=== PATIENT | female | born 1990 | race African-American/Black ===

== ENCOUNTER 2016-11-13 10:40 | Emergency (ER) | payer SELFPAY ==
[~2016-11-13] VITALS: Ht 165.1 cm; Wt 113.6 kg
[2016-11-13] MEDS ORDERED: ONDANSETRON (ODT) 4 MG TAB ODT STA (10:50)
[2016-11-13] MEDS ORDERED: HYDROmorphONE 1 MG/ML SYG IV STA ×3 (10:50→13:46)
[2016-11-13] MEDS ORDERED: SOD CHLORIDE 0.9% 1,000 ML IV STA (10:50)
[2016-11-13] MEDS ORDERED: KETOROLAC 30 MG INJ IV STA (10:50)
[2016-11-13] MEDS ORDERED: HYDROmorphONE 2 MG/ML SYG IM STA (10:50)
[2016-11-13 11:08] VITALS: Ht 165.1 cm; Wt 113.6 kg
[2016-11-13 11:17] LABS: BASOPHILS % 0.4 % (0.0-2.0); HEMATOCRIT 30.2 % (37.0-47.0); LYMPHOCYTES # 0.9 10^3/ul (0.8-2.9); MEAN CORPUSCULAR HEMOGLOBIN 25.8 pg (29.0-33.0); MEAN CORPUSCULAR HGB CONC 33.1 g/dl (32.0-37.0); MEAN CORPUSCULAR VOLUME 77.8 fl (82.0-101.0); MEAN PLATELET VOLUME 11.5 fl (7.4-10.4); MONOCYTE # 0.4 10^3/ul (0.3-0.9); NEUTROPHIL # 8.5 10^3/ul (1.6-7.5); NEUTROPHILS % 86.3 % (39.0-77.0); PLATELET COUNT 227 10^3/UL (140-415); RED BLOOD COUNT 3.88 10^6/ul (4.20-5.40); RED CELL DISTRIBUTION WIDTH 15.5 % (11.5-14.5); RETICULOCYTE COUNT % 1.6 % (0.5-1.5); WHITE BLOOD COUNT 9.9 10^3/ul (4.8-10.8)
[2016-11-13 11:54] VITALS: BP 136/80; PULSE 91; RESP 20; TEMP 98.2
[2016-11-13 11:56] LABS: ALBUMIN 4.3 g/dl (3.3-4.9); ALBUMIN/GLOBULIN RATIO 1.48; BILIRUBIN,INDIRECT 0.2 mg/dl (0-1.1); BILIRUBIN,TOTAL 0.2 mg/dl (0.2-1.3); CALCIUM 9.5 mg/dl (8.4-10.2); CREATININE 0.82 mg/dl (0.44-1.00); POTASSIUM 3.2 mmol/L (3.5-5.1); TOTAL PROTEIN 7.2 g/dl (6.1-8.1)
[2016-11-13 12:00] LABS: ADD UMIC NO; UR ASCORBIC ACID NEGATIVE (NEGATIVE); UR BILIRUBIN (Dip) NEGATIVE (NEGATIVE); UR BLOOD (Dip) NEGATIVE (NEGATIVE); UR CLARITY CLEAR (CLEAR); UR COLOR COLORLESS (YELLOW); UR GLUCOSE (Dip) NEGATIVE (NEGATIVE); UR KETONES (Dip) 1+ mg/dL (NEGATIVE); UR LEUKOCYTE ESTERASE (Dip) NEGATIVE Leu/ul (NEGATIVE); UR NITRITE (Dip) NEGATIVE (NEGATIVE); UR SPECIFIC GRAVITY (Dip) 1.011 (1.003-1.030); UR TOTAL PROTEIN (Dip) NEGATIVE (NEGATIVE); UR UROBILINOGEN (Dip) NEGATIVE (NEGATIVE)
--- NOTE | 2016-11-13 12:06 | RADRPT ---
PROCEDURE: XR Chest. CLINICAL INDICATION: Abdominal pain TECHNIQUE: Anterior chest x-ray. COMPARISON: None. FINDINGS: The lungs are clear. No pleural effusion identified. There is no evidence of pneumothorax. The cardiomediastinal silhouette is unremarkable. The soft tissues are normal. Surgical chiquita right upper quadrant are consistent with previous chol ecystectomy. Osseous structures are unremarkable. IMPRESSION: 1. No acute disease is seen in the chest. 2. No evidence of bowel perforation. RPTAT: QQ .Osman Haskins MD, MD Date Time Electronically viewed and signed by .Osman Haskins MD, on 11/13/2016 12:06 .M/
[2016-11-13] MEDS ORDERED: ONDA8TAB14 PO (13:45)
[2016-11-13] MEDS ORDERED: ONDANSETRON 4 MG INJ IV STA (13:46)
[2016-11-13] MEDS ORDERED: TRAM50TA2 PO (13:46)
--- NOTE | 2016-11-13 13:51 | ERD ---
ER Documentation Chief Complaint Date/Time DATE: 11/13/16 TIME: 13:47 Chief Complaint PAIN/VOMITING, PT STATES SHE IS HAVING A SICKLE CELL CRISIS HPI This is a 26-year-old female complaining of a sickle cell crisis. The patient is having her typical sickle cell crisis attack which is diffuse body pain and nausea vomiting. The patient says the reason for her tach is that she flew on a plane from [place] and landed last night. She says when she flies on long trips she always gets in a crisis. She says there is no new symptoms with this crisis in her usual attacks. Denies any headache chest pain shortness of breath. No diarrhea. Her pain is in her joints and arms and legs described as sharp and constant. She is vomiting and there is no bile or blood in her vomitus. ROS All systems reviewed and are negative except as per history of present illness. Medications Home Meds Active Scripts Tramadol HCl (Tramadol HCl) 50 Mg Tablet, 50 MG PO Q6, #20 TAB Prov:JOSE FAIR DO 11/13/16 Ondansetron (Ondansetron Odt) 8 Mg Tab.rapdis, 8 MG PO Q6H Y for NAUSEA AND/OR VOMITING, #12 TAB Prov:JOSE FAIR. DO 11/13/16 Allergies Allergies: Coded Allergies: No Known Allergy (Unverified , 11/13/16) PMhx/Soc History of Surgery: Yes (CHOLECYSTECTOMY) Anesthesia Reaction: No Hx Neurological Disorder: No Hx Cardiac Disorders: No Hx Psychiatric Problems: Yes (ANXIETY) Hx Miscellaneous Medical Probl: Yes (SICKLE CELL) Hx Alcohol Use: No Hx Substance Use: No Hx Tobacco Use: No Smoking Status: Never smoker FmHx Family History: No coronary disease Physical Exam Vitals Vital Signs Date Time Temp Pulse Resp B/P Pulse Ox O2 Delivery O2 Flow Rate FiO2 11/13/16 11:54 98.2 91 20 136/80 99 Room Air 11/13/16 11:08 98.9 92 20 136/76 99 Physical Exam Const: Well-developed, well-nourished, some active nausea and vomiting and is obviously uncomfortable and pain Head: Atraumatic, normocephalic Eyes: Normal Conjunctiva, PERRLA, EOMI, normal sclera, no nystagmus ENT: Normal External Ears, Nose and Mouth, moist mucus membranes. Neck: Full range of motion. No meningismus, no lymphadenopathy. Resp: Clear to auscultation bilaterally, no wheezing, rhonchi, rales Cardio: Regular rate and rhythm, no murmurs, S1 S2 present Abd: Soft, non tender x 4, non distended. Normal bowel sounds, no guarding or rebound, no pulsitile abdominal masses or bruits Skin: No petechiae or rashes, no ecchymosis , no maculopapular rash Back: No midline or flank tenderness Ext: No cyanosis, or edema, FROM x 4, normal inspection, neurovascularly intact x 4 Neur: Awake and alert, STR 5/5 x 4, sensation intact x 4, no focal findings, cerebellum intact Psych: Normal Mood and Affect Result Diagram: 11/13/16 1100 11/13/16 1100 Results 24 hrs Laboratory Tests Test 11/13/16 11:00 11/13/16 11:15 White Blood Count 9.910^3/ul Red Blood Count 3.8810^6/ul Hemoglobin 10.0g/dl Hematocrit 30.2% Mean Corpuscular Volume 77.8fl Mean Corpuscular Hemoglobin 25.8pg Mean Corpuscular Hemoglobin Concent 33.1g/dl Red Cell Distribution Width 15.5% Platelet Count 95974^3/UL Mean Platelet Volume 11.5fl Neutrophils % 86.3% Lymphocytes % 9.0% Monocytes % 4.0% Eosinophils % 0.0% Basophils % 0.4% Nucleated Red Blood Cells % 0.0/100WBC Neutrophils # 8.510^3/ul Lymphocytes # 0.910^3/ul Monocytes # 0.410^3/ul Eosinophils # 0.010^3/ul Basophils # 0.010^3/ul Nucleated Red Blood Cells # 0.010^3/ul Absolute Reticulocyte Count 0.062X10^6 Percent Reticulocyte Count 1.6% Sodium Level 140mmol/L Potassium Level 3.2mmol/L Chloride Level 107mmol/L Carbon Dioxide Level 19mmol/L Anion Gap 17 Blood Urea Nitrogen 8mg/dl Creatinine 0.82mg/dl Glucose Level 129mg/dl Calcium Level 9.5mg/dl Total Bilirubin 0.2mg/dl Direct Bilirubin 0.00mg/dl Indirect Bilirubin 0.2mg/dl Aspartate Amino Transf (AST/SGOT) 29IU/L Alanine Aminotransferase (ALT/SGPT) 32IU/L Alkaline Phosphatase 68IU/L Total Protein 7.2g/dl Albumin 4.3g/dl Globulin 2.90g/dl Albumin/Globulin Ratio 1.48 Urine Color COLORLESS Urine Clarity CLEAR Urine pH 8.0 Urine Specific [place] 1.011 Urine Ketones 1+mg/dL Urine Nitrite NEGATIVEmg/dL Urine Bilirubin NEGATIVEmg/dL Urine Urobilinogen NEGATIVEmg/dL Urine Leukocyte Esterase NEGATIVELeu/ul Urine Hemoglobin NEGATIVEmg/dL Urine Glucose NEGATIVEmg/dL Urine Total Protein NEGATIVEmg/dl Current Medications Medications (Trade) Dose Ordered Sig/Andi Route PRN Reason Start Time Stop Time Status Last Admin Dose Admin Ondansetron HCl (Zofran Odt) 4 mg ONCE STAT ODT 11/13/16 10:50 11/13/16 10:51 DC 11/13/16 10:53 Hydromorphone HCl 2 mg 2 mg ONCE STAT IM 11/13/16 10:50 11/13/16 10:51 DC 11/13/16 10:54 Sodium Chloride (NS) 1,000 ml @ 1,000 mls/hr Q1H STAT IV 11/13/16 10:50 11/13/16 11:49 DC 11/13/16 11:09 Hydromorphone HCl (Dilaudid) 2 mg ONCE STAT IV 11/13/16 10:50 11/13/16 10:52 DC 11/13/16 11:08 Ketorolac Tromethamine (Toradol) 30 mg ONCE STAT IV 11/13/16 10:50 11/13/16 10:52 DC 11/13/16 11:24 Hydromorphone HCl (Dilaudid) 1 mg ONCE STAT IV 11/13/16 12:01 11/13/16 12:02 DC 11/13/16 12:06 Procedures/MDM PROCEDURE: XR Chest. CLINICAL INDICATION: Abdominal pain TECHNIQUE: Anterior chest x-ray. COMPARISON: None. FINDINGS: The lungs are clear. No pleural effusion identified. There is no evidence of pneumothorax. The cardiomediastinal silhouette is unremarkable. The soft tissues are normal. Surgical chiquita right upper quadrant are consistent with previous cholecystectomy. Osseous structures are unremarkable. IMPRESSION: 1. No acute disease is seen in the chest. 2. No evidence of bowel perforation. RPTAT: QQ .Osman Haskins MD, MD Date Time Electronically viewed and signed by .Osman Haskins MD, on 11/13/2016 12: 06 .M/ CC: JOSE FAIR DO Patient received oxygen, IV fluids, multiple rounds of Dilaudid and Zofran. Patient clearly has an elevated reticulocyte count 1.6. Rest of her blood work looks relatively unremarkable. After 3 hours of observation the patient says her pain is much better and will be discharged home. She is asking for some Zofran but does not want any narcotics such as [place]. Will prescribe her Ultram however for pain control Patient is a very difficult stick due to bad veins the nurse is unable to obtain an IV, therefore I placed an external jugular IV Peripheral line placement by me: Nursing staff unable to obtain IV access. Location: Right external jugular vein Technique: 22 gauge. [id number] with nursing assistance Results: Venous flow and easy flush Secured with transparent dressing. No complications. Departure Diagnosis: Primary Impression: Sickle cell crisis Condition: Stable Patient Instructions: Sickle Cell Pain Crisis JOSE FAIR DO Nov 13, 2016 13:51
== END 2016-11-13 14:04 | disposition home or self-care (01) ==
LOC: E/R 10:40
DX: D57.00 Hb-SS disease with crisis, unspecified (principal)
CPT/HCPCS: 71010; 80053; 81003; 85025; 85045; J1170; J1885; J2405; J7030; 36415; 96372; 96374; 96375; 96376